=== PATIENT | female | born 1990 | race Two or more races ===

== ENCOUNTER 2020-01-27 14:00 | Emergency (ER) | payer SELFPAY ==
[~2020-01-27] VITALS: Ht 154.9 cm; Wt 68.0 kg
[2020-01-27] MEDS ORDERED: ACETAMINOPHEN 325 MG TAB PO ONE (15:15)
[2020-01-27] MEDS ORDERED: ACETAMINOPHEN/CODEINE#3 (300/30mg) TAB PO ONE (15:30)
[2020-01-27 16:29] VITALS: BP 131/67
== END 2020-01-27 15:11 | disposition home or self-care (01) ==
LOC: ER 14:00
DX: N61.0 Mastitis without abscess (principal)